=== PATIENT | male | born 1980 | race Caucasian/White ===

== ENCOUNTER 2022-07-03 11:32 | Outpatient (CLI) | payer SELFPAY ==
[2022-07-03 12:12] LABS: Absolute Neutrophil Count 2.4 X10^3/uL (2.0-7.7); Basophil# 0.04 X10^3/uL; Basophil% 0.8 % (0-1); Eosinophil# 0.15 X10^3/uL; Eosinophils% 2.9 % (0-5); Hematocrit 49.3 % (40-54); Hemoglobin 16.4 g/dL (13.0-16.5); Lymphocyte % 42.6 % (19-41); Mean Corp Hgb Conc 33.3 g/dL (32-36); Mean Corpuscular Hgb 31.2 pg (27.0-32.0); Mean Corpuscular Volume 93.9 fL (80-94); Mean Platelet Vol. 9.1 fl (6.2-12.0); Monocyte% 7.8 % (0-10); NRBC Flagged by Analyzer 0 % (0-5); Neutrophil # 2.36 X10^3/uL (2.7-7.7); Neutrophil % 45.7 % (47-70); Platelet Count 197 K/mm3 (150-450); RBC Distribution Width CV 12.6 % (11.6-14.6); RBC Distribution Width SD 43.7 fl (35.1-43.9); Red Blood Count 5.25 M/mm3 (4.6-6.2); White Blood Count 5.2 K/mm3 (4.4-11.0)
== END 2022-07-03 23:59 | disposition home or self-care (01) ==
LOC: BIMLAB 11:32
PROVIDERS: PCP Internal Medicine; Referring Provider Internal Medicine; Visit Provider Internal Medicine
DX: M54.9 Dorsalgia, unspecified (principal); Z79.890 Hormone replacement therapy; G89.29 Other chronic pain
CPT/HCPCS: 36415; 85025

== ENCOUNTER → 2022-08-12 | Outpatient (CLI) | payer SELFPAY ==
--- NOTE | 2022-08-12 12:30 | MRI_ITS ---
STUDY: MRI LUMBAR SPINE WITHOUT CONTRAST REASON FOR EXAM: Male, 41 years old. Chronic Back Pain, bilat leg pain TECHNIQUE: Standardized fat and water weighted pulse sequences were obtained in the sagittal and axial planes. COMPARISON: None FINDINGS: T10-T11: (Sagittal only). Normal T10 inferior endplate. Mild old anterior wedge compression fracture of the upper T11 vertebral body. Mild disc space height narrowing. Normal disc hydration and morphology. Normal central canal and bilateral intervertebral neural foramina. T11-T12: (Sagittal only). Schmorl''s node in the anterior T11 inferior endplate causing increased anterior disc space height. Normal T12 superior endplate. Normal central canal and bilateral intervertebral neural foramina. T12-L1: (Sagittal only). Normal endplates. Normal disc height, hydration and morphology. No ventral extradural defect. Normal central canal and bilateral intervertebral neural foramina. Normal lumbar lordosis. There is no substantial scoliosis. Normal conus medullaris that terminates at the lower T12 vertebral body level. L1-2: Normal endplates. Normal disc height, hydration and morphology. Normal bilateral facet joints. Normal central canal and bilateral lateral recesses. Normal bilateral intervertebral neural foramina. L2-3: Normal endplates. Normal disc height, hydration and morphology. Normal bilateral facet joints. Normal central canal and bilateral lateral recesses. Normal bilateral intervertebral neural foramina. L3-4: Normal endplates. Mild disc space height narrowing. Minimal degenerative anterolisthesis of L3 on L4. Mild bilateral degenerative facet arthropathy with fluid in the facet joints. Normal central canal and bilateral lateral recesses. Normal bilateral intervertebral neural foramina. L4-5: Normal endplates. Normal disc height, hydration and morphology. Normal bilateral facet joints. Normal central canal and bilateral lateral recesses. Normal bilateral intervertebral neural foramina. L5-S1: Normal endplates. Mild disc space height narrowing. Mild anterolisthesis of L5 on S1. No significant facet arthropathy. Normal central canal and bilateral lateral recesses. Normal bilateral intervertebral neural foramina. Normal visualized sacral ala. Normal visualized paraspinous soft tissue structures. MRI/Spine Lumbar (Routine) IMPRESSION: 1. No MRI evidence of lumbar extruded disc fragment, spinal stenosis or nerve root displacement. 2. Minimal degenerative anterolisthesis of L3 on L4 with mild bilateral degenerative facet arthropathy containing minimal amount of fluid. 3. Mild anterolisthesis of L5 on S1. Exact etiology is unknown since the presence or absence of L5 pars defects are difficult to evaluate since the axial slices are not contiguous. Correlation with plain film radiographs will be helpful. Electronically Signed: Aric Rowe MD at 13:37 EDT ,
== END | disposition home or self-care (01) ==
PROVIDERS: PCP Internal Medicine; Referring Provider Internal Medicine; Visit Provider Internal Medicine
DX: M54.16 Radiculopathy, lumbar region (principal); G89.29 Other chronic pain
CPT/HCPCS: 72148